=== PATIENT | female | born 1945 | race Caucasian/White ===

== ENCOUNTER 2023-08-13 10:14 | Inpatient (IN) | payer MEDICARE ==
[2023-08-13] MEDS ORDERED: Ondansetron ODT 4 MG TAB PO PRN (11:24)
[2023-08-13] MEDS ORDERED: Promethazine HCl 25 MG SUPP PR PRN (11:24)
[2023-08-13] MEDS ORDERED: Guaifenesin DM 100-10/5 ML UDCUP PO PRN (11:24)
[2023-08-13] MEDS ORDERED: cloNIDine 0.1 MG TAB PO PRN (11:24)
[2023-08-13] MEDS ORDERED: Benzocaine/Menthol 1 LOZ LOZ PO PRN (11:24)
[2023-08-13] MEDS ORDERED: Sodium Chloride 0.65% Nasal 44 ML BOT EA NARE PRN (11:24)
[2023-08-13] MEDS ORDERED: Benzonatate 100 MG CAP PO PRN (11:24)
[2023-08-13] MEDS ORDERED: Artificial Tear Sol 15 ML BOT EA EYE PRN (11:24)
[2023-08-13] MEDS ORDERED: Calcium Carbonate 500 MG ChewTAB PO PRN (11:24)
[2023-08-13] MEDS ORDERED: Bisacodyl 10 MG SUPP PR PRN (18:02)
[2023-08-13] MEDS ORDERED: Acetaminophen 650 MG Suppository PR PRN (18:02)
[2023-08-13] MEDS ORDERED: Bisacodyl 5 MG TAB PO PRN (18:02)
[2023-08-13] MEDS: traMADol HCl 50 MG TAB PO PRN (20:11)
[2023-08-13] MEDS: Famotidine 20 MG TAB PO SCH (20:12)
[2023-08-13] MEDS: Gabapentin 100 MG CAP PO SCH (22:10)
[2023-08-13] MEDS ORDERED: Ondansetron ODT 4 MG TAB SL PRN (22:15)
[2023-08-14 05:45] LABS: %Lymphocytes 28.9 % (21.0-51.0); %Monocytes 11.1 % (0.0-10.0); %Neutrophils 54.5 % (42.0-75.0); Hematocrit 36.4 % (36.0-47.0); Hemoglobin 12.3 g/dL (12.0-16.0); Mean Corpuscular HGB CONC 33.7 g/dL (32.0-36.0); Mean Corpuscular Hemoglobin 31.5 pg (27.0-31.0); Mean Corpuscular Volume 93.4 fl (78.0-98.0); Mean Platelet Volume 6.8 fL (7.4-10.4); Platelet Count 227 10x3/uL (130-400); RBC Distribution Width 12.5 % (11.5-14.5); White Blood Cell (WBC) Count 4.6 10x3/uL (4.8-10.8)
[2023-08-14 05:46] LABS: #Basophils 0.1 thou/uL (0.0-0.2); #Eosinphils 0.2 thou/uL (0.0-0.7); #Lymphocytes 1.3 thou/uL (1.20-3.40); #Monocytes 0.5 thou/uL (0.11-0.59); #Neutrophils 2.5 thou/uL (1.40-6.50); %Basophils 1.7 % (0.0-1.0); %Eosinophils 3.8 % (0.0-10.0)
[2023-08-14 06:01] LABS: ALT (SGPT) 83 U/L (8-55); AST (SGOT) 74 U/L (5-34); Albumin 3.2 g/dL (3.4-4.8); Alkaline Phosphatase 47 U/L (40-110); Anion Gap 15 mmol/L (10-20); BUN (Urea Nitrogen) 20 mg/dL (9.8-20.1); Bilirubin, Total 0.6 mg/dL (0.2-1.2); Calc. Creatinine Clearance 66 mL/min (70-130); Calcium 8.7 mg/dL (7.8-10.44); Carbon Dioxide 26 mmol/L (23-31); Chloride 98 mmol/L (98-107); Estimated GFR 77; Globulin 2.2 g/dL (2.4-3.5); Glucose 97 mg/dL (83-110); Potassium 3.5 mmol/L (3.5-5.1); Protein, Total 5.4 g/dL (5.8-8.1); Sodium 135 mmol/L (136-145)
[2023-08-14] MEDS: Gabapentin 100 MG CAP PO SCH ×3 (06:30→21:22)
[2023-08-14] MEDS: traMADol HCl 50 MG TAB PO PRN ×2 (08:23→21:23)
[2023-08-14] MEDS: Polyethylene Glycol 3350 17 GM Packet PO SCH (09:09)
[2023-08-14] MEDS: Senokot S 8.6-50 MG TAB PO PRN (09:10)
[2023-08-14] MEDS: Enoxaparin 40 MG (0.4 mL) SYRINGE SC SCH (09:11)
[2023-08-14] MEDS: Famotidine 20 MG TAB PO SCH ×2 (09:11→21:22)
[2023-08-14] MEDS: Hydrochlorothiazide 25 MG TAB PO SCH (09:11)
[2023-08-14 15:37] LABS: Iron 53 ug/dL (50-170); Iron Binding Capacity, Total 209 mcg/dL (265-497)
[2023-08-14 15:48] LABS: Iron 53 ug/dL (50-170); Iron Binding Capacity, Total 204 mcg/dL (265-497)
[2023-08-15] MEDS: Gabapentin 100 MG CAP PO SCH ×3 (05:32→21:06)
[2023-08-15] MEDS: Enoxaparin 40 MG (0.4 mL) SYRINGE SC SCH (09:40)
[2023-08-15] MEDS: Polyethylene Glycol 3350 17 GM Packet PO SCH (09:41)
[2023-08-15] MEDS: Hydrochlorothiazide 25 MG TAB PO SCH (09:41)
[2023-08-15] MEDS: Famotidine 20 MG TAB PO SCH ×2 (09:41→21:05)
[2023-08-15] MEDS: Acetaminophen 325 MG TAB PO PRN (15:04)
[2023-08-15] MEDS: Senokot S 8.6-50 MG TAB PO PRN (15:04)
[2023-08-15] MEDS: traMADol HCl 50 MG TAB PO PRN (18:29)
[2023-08-15] MEDS: Melatonin 3 MG TAB PO PRN (21:07)
[2023-08-16] MEDS: Gabapentin 100 MG CAP PO SCH ×3 (05:41→20:49)
[2023-08-16] MEDS ORDERED: Lidocaine 4% Patch TD SCH (09:00)
[2023-08-16] MEDS: Famotidine 20 MG TAB PO SCH ×2 (09:55→20:48)
[2023-08-16] MEDS: Hydrochlorothiazide 25 MG TAB PO SCH (09:55)
[2023-08-16] MEDS: Enoxaparin 40 MG (0.4 mL) SYRINGE SC SCH (09:55)
[2023-08-16] MEDS: Polyethylene Glycol 3350 17 GM Packet PO SCH (09:56)
[2023-08-16] MEDS: Acetaminophen 325 MG TAB PO PRN ×2 (10:21→20:49)
[2023-08-16] MEDS: Lidocaine 4% Patch TD SCH (12:01)
[2023-08-16] MEDS ORDERED: Transdermal Patch Removal TOP SCH (21:00)
[2023-08-17] MEDS: Transdermal Patch Removal TOP SCH (00:02)
[2023-08-17] MEDS: Gabapentin 100 MG CAP PO SCH ×3 (05:50→20:51)
[2023-08-17] MEDS: Enoxaparin 40 MG (0.4 mL) SYRINGE SC SCH (08:37)
[2023-08-17] MEDS: Famotidine 20 MG TAB PO SCH ×2 (08:39→20:51)
[2023-08-17] MEDS: Polyethylene Glycol 3350 17 GM Packet PO SCH (08:40)
[2023-08-17] MEDS: Hydrochlorothiazide 25 MG TAB PO SCH (08:40)
[2023-08-17] MEDS: traMADol HCl 50 MG TAB PO PRN ×2 (08:50→14:45)
[2023-08-17] MEDS: Lidocaine 4% Patch TD SCH (12:07)
[2023-08-17] MEDS: Acetaminophen 325 MG TAB PO PRN (20:52)
[2023-08-17] MEDS: Melatonin 3 MG TAB PO PRN ×2 (20:52)
[2023-08-18] MEDS: Transdermal Patch Removal TOP SCH (00:01)
[2023-08-18] MEDS: Gabapentin 100 MG CAP PO SCH ×3 (05:40→20:30)
[2023-08-18 09:27] LABS: #Basophils 0.1 thou/uL (0.0-0.2); #Eosinphils 0.1 thou/uL (0.0-0.7); #Lymphocytes 0.9 thou/uL (1.20-3.40); #Monocytes 0.5 thou/uL (0.11-0.59); #Neutrophils 3.5 thou/uL (1.40-6.50); %Basophils 1.3 % (0.0-1.0); %Eosinophils 2.5 % (0.0-10.0); %Monocytes 9.8 % (0.0-10.0); %Neutrophils 68.4 % (42.0-75.0); Hematocrit 39.4 % (36.0-47.0); Hemoglobin 13.1 g/dL (12.0-16.0); Mean Corpuscular HGB CONC 33.3 g/dL (32.0-36.0); Mean Corpuscular Hemoglobin 31.4 pg (27.0-31.0); Mean Corpuscular Volume 94.5 fl (78.0-98.0); Mean Platelet Volume 6.7 fL (7.4-10.4); Platelet Count 273 10x3/uL (130-400); RBC Distribution Width 12.6 % (11.5-14.5); Red Blood Cell (RBC) Count 4.17 mill/uL (4.20-5.40); White Blood Cell (WBC) Count 5.1 10x3/uL (4.8-10.8)
[2023-08-18 09:36] LABS: Anion Gap 15 mmol/L (10-20); BUN (Urea Nitrogen) 17 mg/dL (9.8-20.1); Calc. Creatinine Clearance 76 mL/min (70-130); Calcium 9.3 mg/dL (7.8-10.44); Carbon Dioxide 27 mmol/L (23-31); Chloride 99 mmol/L (98-107); Estimated GFR 89; Glucose 104 mg/dL (83-110); Potassium 3.9 mmol/L (3.5-5.1); Sodium 137 mmol/L (136-145)
[2023-08-18] MEDS: Polyethylene Glycol 3350 17 GM Packet PO SCH (09:40)
[2023-08-18] MEDS: Hydrochlorothiazide 25 MG TAB PO SCH (09:41)
[2023-08-18] MEDS: Famotidine 20 MG TAB PO SCH ×2 (09:41→20:32)
[2023-08-18] MEDS: Enoxaparin 40 MG (0.4 mL) SYRINGE SC SCH (11:02)
[2023-08-18] MEDS: Lidocaine 4% Patch TD SCH (13:40)
[2023-08-18] MEDS: traMADol HCl 50 MG TAB PO PRN (20:31)
[2023-08-18] MEDS: Melatonin 3 MG TAB PO PRN (22:31)
[2023-08-19] MEDS: Transdermal Patch Removal TOP SCH (01:16)
[2023-08-19] MEDS: Gabapentin 100 MG CAP PO SCH ×3 (05:28→20:11)
[2023-08-19] MEDS: traMADol HCl 50 MG TAB PO PRN ×2 (05:39→20:09)
[2023-08-19] MEDS: Famotidine 20 MG TAB PO SCH ×2 (09:07→20:12)
[2023-08-19] MEDS: Hydrochlorothiazide 25 MG TAB PO SCH (09:07)
[2023-08-19] MEDS: Acetaminophen 325 MG TAB PO PRN (09:07)
[2023-08-19] MEDS: Enoxaparin 40 MG (0.4 mL) SYRINGE SC SCH (09:08)
[2023-08-19] MEDS: Polyethylene Glycol 3350 17 GM Packet PO SCH (09:08)
[2023-08-19] MEDS: Lidocaine 4% Patch TD SCH (12:14)
[2023-08-19] MEDS: Melatonin 3 MG TAB PO PRN (20:10)
[2023-08-20] MEDS: Transdermal Patch Removal TOP SCH (01:05)
[2023-08-20] MEDS: Gabapentin 100 MG CAP PO SCH ×3 (06:02→20:49)
[2023-08-20] MEDS: Hydrochlorothiazide 25 MG TAB PO SCH (08:58)
[2023-08-20] MEDS: Polyethylene Glycol 3350 17 GM Packet PO SCH (08:58)
[2023-08-20] MEDS: Enoxaparin 40 MG (0.4 mL) SYRINGE SC SCH (08:58)
[2023-08-20] MEDS: Famotidine 20 MG TAB PO SCH ×2 (08:58→20:49)
[2023-08-20] MEDS: Lidocaine 4% Patch TD SCH (12:33)
[2023-08-20] MEDS: Acetaminophen 325 MG TAB PO PRN (16:19)
[2023-08-20] MEDS: Melatonin 3 MG TAB PO PRN (20:49)
[2023-08-20] MEDS: traMADol HCl 50 MG TAB PO PRN (20:50)
[2023-08-21] MEDS: Transdermal Patch Removal TOP SCH (01:42)
[2023-08-21] MEDS: Gabapentin 100 MG CAP PO SCH ×3 (05:36→21:21)
[2023-08-21] MEDS: Enoxaparin 40 MG (0.4 mL) SYRINGE SC SCH (09:51)
[2023-08-21] MEDS: Hydrochlorothiazide 25 MG TAB PO SCH (09:51)
[2023-08-21] MEDS: Famotidine 20 MG TAB PO SCH ×2 (09:51→21:21)
[2023-08-21] MEDS: Polyethylene Glycol 3350 17 GM Packet PO SCH (09:51)
[2023-08-21] MEDS: Lidocaine 4% Patch TD SCH (12:06)
[2023-08-21] MEDS: Acetaminophen 325 MG TAB PO PRN (12:06)
[2023-08-21] MEDS: Melatonin 3 MG TAB PO PRN (21:21)
[2023-08-22] MEDS: Acetaminophen 325 MG TAB PO PRN (01:41)
[2023-08-22] MEDS: Transdermal Patch Removal TOP SCH (01:41)
[2023-08-22] MEDS: Cyclobenzaprine 10 MG TAB PO PRN (01:41)
[2023-08-22] MEDS: Gabapentin 100 MG CAP PO SCH ×3 (05:36→21:10)
[2023-08-22] MEDS ORDERED: Furosemide 20 MG TAB PO SCH (07:15)
[2023-08-22] MEDS: Hydrochlorothiazide 25 MG TAB PO SCH (08:12)
[2023-08-22] MEDS: Enoxaparin 40 MG (0.4 mL) SYRINGE SC SCH (08:12)
[2023-08-22] MEDS: Famotidine 20 MG TAB PO SCH ×2 (08:12→21:10)
[2023-08-22] MEDS: Polyethylene Glycol 3350 17 GM Packet PO SCH (08:13)
[2023-08-22] MEDS: Lidocaine 4% Patch TD SCH (12:51)
[2023-08-22] MEDS: Melatonin 3 MG TAB PO PRN (21:11)
[2023-08-23] MEDS: Transdermal Patch Removal TOP SCH (01:30)
[2023-08-23] MEDS: Gabapentin 100 MG CAP PO SCH ×3 (05:38→20:21)
[2023-08-23] MEDS: Polyethylene Glycol 3350 17 GM Packet PO SCH (08:03)
[2023-08-23] MEDS: Famotidine 20 MG TAB PO SCH ×2 (08:04→20:20)
[2023-08-23] MEDS: Enoxaparin 40 MG (0.4 mL) SYRINGE SC SCH (08:04)
[2023-08-23] MEDS: Hydrochlorothiazide 25 MG TAB PO SCH (08:05)
[2023-08-23] MEDS ORDERED: Furosemide 20 MG TAB PO SCH (09:00)
[2023-08-23] MEDS: Lidocaine 4% Patch TD SCH (12:05)
[2023-08-23] MEDS: Melatonin 3 MG TAB PO PRN (20:20)
[2023-08-24] MEDS: Transdermal Patch Removal TOP SCH (04:05)
[2023-08-24] MEDS: Gabapentin 100 MG CAP PO SCH ×3 (06:00→20:13)
[2023-08-24 06:14] VITALS: BMI 27.1
[2023-08-24] MEDS: Enoxaparin 40 MG (0.4 mL) SYRINGE SC SCH (07:59)
[2023-08-24] MEDS: Polyethylene Glycol 3350 17 GM Packet PO SCH (07:59)
[2023-08-24] MEDS: Famotidine 20 MG TAB PO SCH ×2 (07:59→20:13)
[2023-08-24] MEDS: Hydrochlorothiazide 25 MG TAB PO SCH (07:59)
[2023-08-24] MEDS: Lidocaine 4% Patch TD SCH (12:32)
[2023-08-24] MEDS: Cyclobenzaprine 10 MG TAB PO PRN (20:14)
[2023-08-24] MEDS: Melatonin 3 MG TAB PO PRN (20:14)
[2023-08-25] MEDS: Transdermal Patch Removal TOP SCH (05:44)
[2023-08-25] MEDS: Gabapentin 100 MG CAP PO SCH (05:44)
[2023-08-25 06:00] LABS: #Basophils 0.1 thou/uL (0.0-0.2); #Eosinphils 0.1 thou/uL (0.0-0.7); #Lymphocytes 1.4 thou/uL (1.20-3.40); #Monocytes 0.6 thou/uL (0.11-0.59); #Neutrophils 2.4 thou/uL (1.40-6.50); %Basophils 1.5 % (0.0-1.0); %Eosinophils 3.2 % (0.0-10.0); %Lymphocytes 29.7 % (21.0-51.0); %Monocytes 12.5 % (0.0-10.0); %Neutrophils 53.2 % (42.0-75.0); Hematocrit 39.8 % (36.0-47.0); Hemoglobin 13.5 g/dL (12.0-16.0); Mean Corpuscular HGB CONC 33.9 g/dL (32.0-36.0); Mean Corpuscular Hemoglobin 31.6 pg (27.0-31.0); Mean Corpuscular Volume 93.2 fl (78.0-98.0); Mean Platelet Volume 6.7 fL (7.4-10.4); Platelet Count 310 10x3/uL (130-400); RBC Distribution Width 12.7 % (11.5-14.5); Red Blood Cell (RBC) Count 4.27 mill/uL (4.20-5.40); White Blood Cell (WBC) Count 4.6 10x3/uL (4.8-10.8)
[2023-08-25 06:14] LABS: Anion Gap 14 mmol/L (10-20); BUN (Urea Nitrogen) 17 mg/dL (9.8-20.1); Calc. Creatinine Clearance 76 mL/min (70-130); Calcium 9.1 mg/dL (7.8-10.44); Carbon Dioxide 25 mmol/L (23-31); Chloride 103 mmol/L (98-107); Estimated GFR 89; Glucose 103 mg/dL (83-110); Potassium 3.4 mmol/L (3.5-5.1); Sodium 139 mmol/L (136-145)
[2023-08-25] MEDS: Hydrochlorothiazide 25 MG TAB PO SCH (07:15)
[2023-08-25 07:16] VITALS: BP 130/72; TEMP 97.6
[2023-08-25] MEDS: Enoxaparin 40 MG (0.4 mL) SYRINGE SC SCH (07:16)
[2023-08-25] MEDS: Polyethylene Glycol 3350 17 GM Packet PO SCH (07:16)
[2023-08-25] MEDS: Famotidine 20 MG TAB PO SCH (07:16)
== END 2023-08-25 11:55 | disposition home or self-care (01) | DRG 560 ==
LOC: NAV ACUTE 14:40
PROVIDERS: ADMIT Family Medicine; ATTEND Family Medicine
DX: S22.42XD Multiple fractures of ribs, left side, subsequent encounter for fracture with routine healing (principal); J98.11 Atelectasis; S42.102D Fracture of unspecified part of scapula, left shoulder, subsequent encounter for fracture with routine healing; R53.81 Other malaise; I10 Essential (primary) hypertension; E78.5 Hyperlipidemia, unspecified; R53.1 Weakness; G62.9 Polyneuropathy, unspecified; W18.30XD Fall on same level, unspecified, subsequent encounter; Z98.890 Other specified postprocedural states; Z90.710 Acquired absence of both cervix and uterus; Z63.4 Disappearance and death of family member
CPT/HCPCS: 36415; 71045; 80048; 80053; 82607; 82728; 83540; 83550; 85025; 85046; J1650